=== PATIENT | female | born 1965 | race African-American/Black ===

== ENCOUNTER 2016-09-12 19:46 | Emergency (ER) | payer OTHER ==
--- NOTE | ~2016-09-12 | CR63 ---
[facility] A Service of [facility] & [facility] RADIOLOGY TEXT RESULTS PATIENT: ALHAJI GIMENEZ LOCATION: CFT[facility] : 63 UNIT #: [id number] AGE: [address]: Lizzy Langley SEX: F ORDER DR: [id number] [facility] [address] [place], [place] [address] [id number] E MR#: [id number] Acc #: [id number] NAME: ALHAJI GIMENEZ : 1965 SEX: F STUDY DATE/TIME: 09/12/2016 19:30 UNIT: [facility] ROOM: STUDY DESCRIPTION: CR Chest 2 View Attending Physician: Lizzy Langley P.A.-C. Ordering Physician: Yasmany Liriano D.O. Primary Care Physician: Primary Care Physician No MEDICAL IMAGING REPORT This report is preliminary unless electronic signature is present EXAM Chest PA and lateral, 09/12/2016 HISTORY Cough, chest congestion, shortness of breath and sore throat for 3 days. Benign essential hypertension. Smoking history. FINDINGS Two views of the chest were obtained. The lungs are clear. The heart and mediastinum have a normal contour, and the heart size is normal. No pleural effusions are seen. The lungs are hyperinflated, consistent with chronic obstructive pulmonary disease. There is no evidence of active disease. IMPRESSION Chronic obstructive pulmonary disease. No active disease. Dictated by... James David M.D. THIS IS AN ELECTRONICALLY VERIFIED REPORT James David M.D. at 09/13/2016 7:30 AM SOSA/berkley TD: 09/12/2016 23:25 JOB #: [id number] MEDICAL IMAGING REPORT Page 1 of 1 COPY
== END 2016-09-12 20:28 | disposition home or self-care (01) ==
LOC: CFTX 19:46
DX: J20.9 Acute bronchitis, unspecified (principal); I10 Essential (primary) hypertension; F17.210 Nicotine dependence, cigarettes, uncomplicated
CPT/HCPCS: 71020; 87651; 94640; 99284